=== PATIENT | male | born 1960 | race Caucasian/White ===

== ENCOUNTER → 2019-06-10 | Outpatient (CLI) | payer BC ==
--- NOTE | 2019-06-10 16:44 | PCVCIMAG ---
APPROVED REPORT Study performed: 06/10/2019 14:00:16 Exam: Stress Echocardiogram Indication: CAD s/p PCI, STENT X 2,htn,dslp,jolene Patient Location: Echo lab Stress Nurse: Corie Hernandes RN Room #: 1 Status: routine Ht: 5 ft 11 in HR: 66 bpm BP: 126/90 mmHg Rhythm: NSR Medical History Medical History: CAD s/p [place] Cardiac Risk Factors: HTN, Hyperlipidemia, Tobacco History (Former) Previous Cardiac Procedures: PCI,Myocardial infarction Pretest Chest Pain Characteristics: No chest pain Exercise History: Physically active Procedure The patient underwent an Exercise Stress Test using the Kalpesh Protocol. Blood pressure, heart rate, and EKG were monitored. An Echocardiogram was performed by flight technician in four stages in quad fashion. At peak stress, four selected images were obtained and placed side by side with resting images for comparison. Stress Test Details Stress Test: Exercise stress testing was performed using a Kalpesh protocol. HR Resting HR: 66 bpmMax Heart Rate (APMHR): 163 bpm Max HR Achieved: 166 bpmTarget HR (85% APMHR): 138 bpm % of APMHR: 101 Recovery HR: 109 bpm HR response to stress: Normal HR response to stress BP Resting BP: 126/90 mmHg Max BP: 174/82 mmHg Recovery BP: 157/62 mmHg BP response to stress: Normal blood pressure response to stress. ECG Resting ECG: Sinus Rhythm, NSSTT changes, possible prior IMI Stress ECG: Sinus Rhythm, NSSTT changes ST Change: Non-ischemic Maximum ST Deviation: 0 mm Arrhythmia: None Recovery ECG: Sinus Rhythm Recovery ST Change: Non-ischemic Recovery ST Deviation: 0 mm Recovery Arrhythmia: None Clinical Reason for Termination: Maximal effort Stress Symptoms: fatigue,dyspnea Exercise duration: 10 min 01 sec Highest Stage Achieved: Stage 4: 4.2 mph at 16% grade. Exercise capacity: 13.4 METs Overall Exercise Capacity for Age: Good Scale: Sedentary Angina Score: None No complications. Stress ECG Conclusion ECG: Non-ischemic Clinical: Non-ischemic Toure Treadmill Score is 10.0 which is Low risk. Pre-Stress Echo The resting Echocardiogram showed normal left ventricular contractility with an estimated Ejection Fraction of about 55-60%. Normal wall motion in all segments on baseline images. Post-Stress Echo The stress Echocardiogram showed normal left ventricular contractility with an estimated Ejection Fraction of about 65-70%. Normal augmentation of wall motion in all segments on post stress images. Clinical No clinical or ECG evidence for ischemia. Conclusion Clinical Response: Non-ischemic Exercise Capacity: Superior Stress ECG Response: Non-ischemic Stress Echo Images: Non-ischemic No clinical, EKG or echocardiographic evidence for ischemia. No echocardiographic evidence for exercise induced ischemia. Normal stress echocardiogram with maximal exercise stress. Normal color doppler. No regurgitation or stenosis present on pulmonic, mitral, tricuspid and aortic valves. <Conclusion> No clinical, EKG or echocardiographic evidence for ischemia. No echocardiographic evidence for exercise induced ischemia. Normal stress echocardiogram with maximal exercise stress. Normal color doppler. No regurgitation or stenosis present on pulmonic, mitral, tricuspid and aortic valves.
== END | disposition home or self-care (01) ==
LOC: PCVCIMAG 13:45
PROVIDERS: ATTEND Internal Medicine
DX: I25.10 Atherosclerotic heart disease of native coronary artery without angina pectoris (principal); I10 Essential (primary) hypertension; E78.5 Hyperlipidemia, unspecified; G47.33 Obstructive sleep apnea (adult) (pediatric); Z87.891 Personal history of nicotine dependence
CPT/HCPCS: 93325; 93351